=== PATIENT | female | born 1970 | race Caucasian/White ===

== ENCOUNTER 2016-09-21 10:30 | Emergency (ER) | payer OTHER ==
[2016-09-21 11:21] VITALS: BP 117/69
--- NOTE | 2016-09-21 11:53 | RAD ---
INDICATION: Fall COMPARISON: None TECHNIQUE: PA and lateral dual-energy views were obtained. FINDINGS: Bones/Soft Tissues: There are no acute bony findings. Cardiomediastinal: The cardiomediastinal silhouette is normal. Lungs: There are no infiltrates. Pleura: There are no pleural effusions. Other: None IMPRESSION: NO ACTIVE DISEASE..
--- NOTE | 2016-09-21 11:54 | RAD ---
INDICATION: Fall. Wrist injury. COMPARISON: None TECHNIQUE: AP, lateral, and oblique views were obtained. FINDINGS: There is a nondisplaced intra-articular fracture of the distal radius. No other fractures are evident. The carpals articulate normally. There is moderate diffuse soft tissue swelling. IMPRESSION: INTRA-ARTICULAR FRACTURE OF THE DISTAL RADIUS.
--- NOTE | 2016-09-21 12:36 | UC ---
Upper Extremity HPI - HPI Summary HPI Summary: Patient fell down a flight of stairs, injuring her right wrist and hand and ribs there is a large amount of swelling in the wrist and hand, brusied as well, abrasions to the right rib cage. - History of Current Complaint Chief Complaint: UCUpperExtremity Stated Complaint: RIGHT WRIST/HAND INJURY Time Seen by Provider: 09/21/16 11:21 Hx Obtained From: Patient Hx Last Menstrual Period: 08/22/16 ?: No Onset/Duration: Sudden Onset, Lasting Hours Severity Initially: Moderate Severity Currently: Severe Location Of Pain: Is Diffuse Character: Aching, Throbbing, Spasmodic, Stiffness Aggravating Factor(s): Movement Alleviating Factor(s): Nothing - Risk Factors Non-Orthopedic Risk Factor: Negative - Allergies/Home Medications Allergies/Adverse Reactions: Allergies Allergy/AdvReac Type Severity Reaction Status Date / Time No Known Allergies Allergy Verified 09/21/16 11:14 Home Medications: Home Medications Meloxicam [Mobic] 15 mg PO DAILY 09/21/16 [History Confirmed 09/21/16] oxyCODONE TAB* [Roxycodone TAB 5 mg*] 5 mg PO Q4H PRN 09/21/16 [History Confirmed 09/21/16] PMH/Surg Hx/FS Hx/Imm Hx Previously Healthy: Yes - Surgical History Surgical History: None - Family History Known Family History: Negative: Hypertension - Social History Alcohol Use: None Substance Use Type: Prescribed Smoking Status (MU): Heavy Every Day Tobacco Smoker Type: Cigarettes Amount Used/How Often: 1/2 pack daily Review of Systems Constitutional: Negative Skin: Bruising Eyes: Negative ENT: Negative Respiratory: Negative Cardiovascular: Negative Gastrointestinal: Negative Genitourinary: Negative Motor: Negative Neurovascular: Negative Musculoskeletal: Arthralgia, Decreased ROM, Edema, Myalgia Neurological: Negative Psychological: Negative All Other Systems Reviewed And Are Negative: Yes Physical Exam Triage Information Reviewed: Yes Appearance: Ill-Appearing, Pain Distress, Thin Vital Signs: Initial Vital Signs Temp 99.5 F 09/21/16 11:15 Pulse 74 09/21/16 11:15 Resp 16 09/21/16 11:15 BP 117/69 09/21/16 11:15 Pulse Ox 98 09/21/16 11:15 Vital Signs Reviewed: Yes Eye Exam: Normal Eyes: Positive: Conjunctiva Clear ENT: Positive: Hearing grossly normal, Pharynx normal, TMs normal Dental Exam: Normal Neck exam: Normal Neck: Positive: Supple, Nontender, No Lymphadenopathy Respiratory Exam: Normal Respiratory: Positive: Chest non-tender, Lungs clear, Normal breath sounds Cardiovascular Exam: Normal Cardiovascular: Positive: RRR, No Murmur, Pulses Normal Abdominal Exam: Normal Abdomen Description: Positive: Nontender, No Organomegaly, Soft Bowel Sounds: Positive: Present Musculoskeletal: Positive: Strength Limited @ - in right upper extremity, ROM Limited @ - trunk rotation, not able to move wrist and hand, ELBOw and shoulder not affected, Edema @ - large amount of brusing and edema in the right hand and wrist, Other: - good sensation and cap refill Neurological Exam: Normal Neurological: Positive: Alert, Muscle Tone Normal Psychological Exam: Normal Skin: Positive: Other - multiple abrasions to the right rib cage Upper Extremity Course/Dx - Course Course Of Treatment: hx obtained, exam performed, meds reviewed, xray of ribs negative. xray of wrist revealed non displaced fracture of the distal radius. sugar tong splint applied and placed in sling. recommend keeping the limb elevated, continue with meloxicam and follow up with ortho this coming week. - Differential Dx/Diagnosis Provider Diagnoses: non displaced fracture of right distal radius. rib contusion. abrasions Discharge - Discharge Plan Condition: Stable Disposition: HOME Patient Education Materials: Elbow Fracture (ED), Wrist Fracture in Adults (ED) Referrals: Rita Daniel NP [Primary Care Provider] - Marcell Singh MD [Medical Doctor] - Additional Instructions: 1. use the sling and keep the hand elevated at all times 2. COntinue with current pain managment. 3. Follow up with Dr Singh, call tomorrow for any appointment
[2016-09-21] MEDS ORDERED: HYDROcodone/ACETAMIN 5-325 MG* 1 TAB PO ONE (12:46)
== END 2016-09-21 12:55 | disposition home or self-care (01) ==
LOC: UCCORT 10:30
DX: S52.501A Unspecified fracture of the lower end of right radius, initial encounter for closed fracture (principal); S20.219A Contusion of unspecified front wall of thorax, initial encounter; T14.8 Other injury of unspecified body region; W10.8XXA Fall (on) (from) other stairs and steps, initial encounter; F17.210 Nicotine dependence, cigarettes, uncomplicated
CPT/HCPCS: 25605; 71020; 99213; G0463